=== PATIENT | female | born 1980 | race Two or more races ===

== ENCOUNTER 2017-12-18 07:03 | Day surgery (SDC) | payer BC, OTHER ==
[2017-12-18 07:52] VITALS: BMI 46.3
[2017-12-18 08:32] VITALS: TEMP 97.8
--- NOTE | 2017-12-18 09:05 | OP ---
DATE OF OPERATION: 12/18/2017 SURGEON: Dre Goss MD PREOPERATIVE DIAGNOSIS: Weight regain status post prior vertical sleeve gastrectomy. POSTOPERATIVE DIAGNOSIS: Dilated gastric pouch. PROCEDURE: Esophagogastroduodenoscopy/upper endoscopy. ESTIMATED BLOOD LOSS: 0. ANESTHESIA: MAC. REASON FOR PROCEDURE: This is a 37-year-old female who presented to the office for weight regain after a prior vertical sleeve gastrectomy. Because of the weight regain, question of dilated gastric pouch was entertained. Because of this, she was consented for an upper endoscopy/EGD, and risks and benefits of the procedure were explained. These included bleeding, infection, injury to surrounding structures including the oral cavity, GE junction, esophagus, stomach, and intestine, perforation, stricture, NC, DVT, PE as some of the complications. The patient understood and signed informed consent. DESCRIPTION OF PROCEDURE: Patient was placed in left lateral decubitus position. Time-out was performed. After she was given MAC by Anesthesia, the endoscope was placed in the patients mouth, and inspection of the esophagus, GE junction, and gastric pouch up into beyond the level of the pylorus was performed. Mild dilation of the gastric pouch was noted. Stomach was then suctioned and endoscope removed. Patient tolerated the procedure well and was transferred to the recovery room in stable condition. DRE GOSS M.D. MARTIN/[id number]
[2017-12-18 09:46] VITALS: BP 130/84; PULSE 68
== END 2017-12-18 09:15 | disposition home or self-care (01) ==
LOC: JASU-ENDO 07:03
PROVIDERS: ATTEND Surgery
PROC: 0DJ08ZZ Inspection of Upper Intestinal Tract, Via Natural or Artificial Opening Endoscopic (ICD-10-PCS; principal; 2017-12-18 08:00)
DX: K31.0 Acute dilatation of stomach (principal); R63.5 Abnormal weight gain; Z98.84 Bariatric surgery status
CPT/HCPCS: 84703

== ENCOUNTER 2024-06-30 13:05 | Day surgery (SDC) | payer BC, OTHER ==
[2024-06-30] MEDS ORDERED: diphenhydrAMINE HCL 50 MG CAPSULE PO PRN (14:06)
[2024-06-30] MEDS ORDERED: HYDROCORTISONE SOD SUCCINATE 100 MG/2 ML VIAL IVPUSH PRN (14:07)
[2024-06-30] MEDS: IRON SUCROSE COMPLEX 200 MG in SODIUM CHLORIDE 100 ML IVPB ONE (14:40)
[2024-06-30 15:38] VITALS: BP 122/70; PULSE 71; RESP 16; TEMP 981
== END 2024-06-30 15:20 | disposition home or self-care (01) ==
LOC: FINFUSION 13:05 → FM/S 13:07 → FINFUSION 15:20
PROVIDERS: ATTEND Internal Medicine Hematology & Oncology
PROC: 3E033GC Introduction of Other Therapeutic Substance into Peripheral Vein, Percutaneous Approach (ICD-10-PCS; principal; 2024-06-30)
DX: D50.9 Iron deficiency anemia, unspecified (principal)
CPT/HCPCS: 96365

== ENCOUNTER 2024-07-14 13:43 | Day surgery (SDC) | payer BC, OTHER ==
[2024-07-14] MEDS ORDERED: diphenhydrAMINE HCL 50 MG CAPSULE PO PRN (14:17)
[2024-07-14] MEDS ORDERED: HYDROCORTISONE SOD SUCCINATE 100 MG/2 ML VIAL IVPB PRN (14:18)
[2024-07-14] MEDS: IRON SUCROSE INJECTION 200 MG in SODIUM CHLORIDE 100 ML IVPB ONE (14:35)
[2024-07-14 15:57] VITALS: BP 129/79; PULSE 66; RESP 18; TEMP 98.3
== END 2024-07-14 15:45 | disposition home or self-care (01) ==
LOC: FINFUSION 13:43 → FM/S 13:44 → FINFUSION 15:45
PROVIDERS: ATTEND Internal Medicine Hematology & Oncology
PROC: 3E033GC Introduction of Other Therapeutic Substance into Peripheral Vein, Percutaneous Approach (ICD-10-PCS; principal; 2024-07-14)
DX: D50.9 Iron deficiency anemia, unspecified (principal)
CPT/HCPCS: 96365; J1756